=== PATIENT | male | born 1990 | race Caucasian/White ===

== ENCOUNTER 2020-02-08 13:30 | Emergency (ER) | payer SELFPAY ==
[2020-02-08 13:45] VITALS: BP 142/84; PULSE 89; RESP 18; TEMP 37.2; O2SAT 97
--- NOTE | 2020-02-08 14:08 | ED.GENADULT ---
HPI - General Adult General Chief complaint: Upper Respiratory Infection Stated complaint: vomiting/diarrhea/cough Time Seen by Provider: 02/08/20 14:08 Source: patient Mode of arrival: ambulatory Limitations: no limitations History of Present Illness HPI narrative: 30-year-old male patient presents to the [facility] with complaints of cold symptoms that started yesterday. Patient states he has had nausea, vomiting and diarrhea that started yesterday afternoon. Denies any fevers that he knows of. Denies any body aches or chills. Patient states he has had a little bit of a cough and a little bit of a shortness of breath. Patient states he is an active smoker. Denies getting a flu shot this year. Patient denies any blood or black tarry stools in the diarrhea. Patient denies any abdominal pain. Patient denies take anything for his symptoms. Patient states last time he was able to keep anything down was yesterday. Related Data Allergies Allergy/AdvReac Type Severity Reaction Status Date / Time No Known Allergies Allergy Unverified 01/31/19 07:52 Review of Systems Review of Systems: Narrative: CONSTITUTIONAL: Denies fever, chills, or sweats. EYES: Denies visual changes, redness, or discharge. ENT: Denies rhinorrhea, congestion, sore throat, or otalgia. CARDIOVASCULAR: Denies chest pain, palpitations, or edema. RESPIRATORY: Positive mild nonproductive cough with slight dyspnea. GASTROINTESTINAL: Denies abdominal pain, positive nausea, vomiting, and diarrhea. GENITOURINARY: Denies dysuria or hematuria. SKIN: Denies rash or itching. MUSCULOSKELETAL: Denies back pain, joint pain, or myalgia. NEUROLOGIC: Denies headache, numbness, or weakness. PSYCHIATRIC: Denies anxiety or depression. [facility] Family History Family History Other Diabetes mellitus Social History Social History Alcohol intake: current Gender identity (if verbalized by the patient): Male Comments At the time of my signature I agree with nursing past medical history, surgical, social, and family history. There is no relevant family history pertinent to the presenting complaint. Exam Narrative: Exam Narrative: GENERAL: ill-appearing, well-nourished, and in no acute distress. HEAD: Normocephalic, atraumatic. EYES: PERRLA and EOMI. ENT: Nares clear, no rhinorrhea or epistaxis. Mucous membranes moist. Posterior pharynx with no erythema, tonsil enlargement, exudates or lesions present. Bilateral TM unable to be assessed due to cerumen impaction. NECK: Supple. No lymphadenopathy CHEST: Clear to auscultation. No respiratory distress. Patient able talk in clear complete sentences. HEART: Regular rate and rhythm. No murmur heard. Normal peripheral pulses. ABDOMEN: Soft, flat, nondistended. No guarding, rebound tenderness, or rigid. No pulsatilla masses. Hyperactive bowel sounds present in all four quadrants. No organomegaly. Negative Tilley?s sign. No periumbicial tenderness. No Supra public tenderness or distension. Good femoral pulses bilaterally. No hernia noted. No scars or surface trauma. EXTREMITIES: Normal range of motion. No edema. SKIN: Warm, dry, no rash. NEURO: No focal deficits. Alert and oriented x3. Course Reevaluation(s) Reevaluation #1: Reevaluated patient after his Zofran and p.o. challenge. Patient states he is feeling a little bit better and less nauseated. Patient is currently sipping on some Sprite able to keep that down at this time. Discussed with him that his flu is negative at this time. Discussed with him this is most likely some type of gastric virus will take some time to run its course. Discussed with him I am to take him off work today and tomorrow and he will also have the weekend to help rehabilitate. Discussed with patient that he needs to be taking in water, Sprite things that are easy to digest in the stomach and I will als
[2020-02-08] MEDS: ONDANSETRON HCL ODT 4 MG TABLET SUBLINGUAL (14:25)
--- NOTE | 2020-02-08 14:56 | PC.NURSE ---
trinity mist and crackers given
== END 2020-02-08 15:02 | disposition home or self-care (01) ==
PROVIDERS: Emergency Provider Nurse Practitioner Family
DX: A08.4 Viral intestinal infection, unspecified (principal)
CPT/HCPCS: 87804; 99213; A9270; G0463

== ENCOUNTER → 2022-05-21 08:12 | Outpatient (CLI) | payer BC, SELFPAY ==
--- NOTE | ~2022-05-21 | CT_ITS ---
EXAMINATION: CT sinus wo con DATE: 05/21/2022 08:41 INDICATION: Chronic sinusitis TECHNIQUE: Computed tomography (CT) of the paranasal sinuses was performed without contrast. Iterativ e reconstruction technique was employed. Exam dose: 280.89 mGy-cm total exam DLP. COMPARISON: None FINDINGS: There is rightward bowing of nasal septum. The nasal turbinates are moderately prominent in size, relatively symmetric. The ostiomeatal units are patent. There is minimal mucoperiosteal thickening of the maxillary sinuses and left sphenoid sinus. The mastoid air cells are normally developed and aerated. Prominent cerebral and accumulation in the external auditory canals, left greater than right. Middle and inner ear apparatus appear normal bilaterally. IMPRESSION: Rightward bowing of nasal septum Patent ostiomeatal units Minimal mucoperiosteal thickening of the maxillary sinuses and left sphenoid sinus Reviewed, dictated and finalized at [facility]. Reviewed, dictated and finalized at [facility]. IMPRESSION: Rightward bowing of nasal septum Patent ostiomeatal units Minimal mucoperiosteal thickening of the maxillary sinuses and left sphenoid si nus
== END ==
PROVIDERS: PCP Nurse Practitioner Family; Visit Provider Otolaryngology
DX: J32.9 Chronic sinusitis, unspecified (principal); J34.2 Deviated nasal septum
CPT/HCPCS: 70486